=== PATIENT | female | born 1975 | race Caucasian/White ===

== ENCOUNTER 2017-09-02 15:13 | Emergency (ER) | payer SELFPAY ==
[2017-09-02 15:22] VITALS: RESP 16; TEMP 98.1
--- NOTE | 2017-09-02 15:48 | EDPHY ---
H & P Stated Complaint: fell from ladder > left elbow pain Source: Patient Exam Limitations: No limitations - Personal History LMP (Females 10-55): Hysterectomy Current Tetanus/Diphtheria Vaccine: Unsure Current Tetanus Diphtheria and Acellular Pertussis (TDAP): Unsure - Medical/Surgical History Hx Asthma: No Hx Chronic Respiratory Disease: No Hx Diabetes: No Hx Cardiac Disease: No Hx Renal Disease: No Hx Cirrhosis: No Hx Alcoholism: No Hx HIV/AIDS: No Hx Splenectomy or Spleen Trauma: No Other PMH: endometriosis, hysterectomy - Social History Smoking Status: Never smoked Time Seen by Provider: 09/02/17 15:48 HPI/ROS: HPI: This is a 41-year-old female who presents with Chief Complaint: Left elbow injury Location: Left elbow Quality: Injury Duration: 1030 Signs and Symptoms: No bleeding, no radiation, no numbness, no weakness, + tingling, no incontinence, + decreased range of motion, + moderate swelling, + moderate bruising Timing: Sudden Severity: 10 out 10 Context: Patient complains of left elbow pain, severe, nonradiating, after falling 5 rings off of a ladder accidentally secondary to losing her footing and landing directly on her left elbow on the ground around 1030 this morning. She has not eaten since last night. She is right-hand dominant. She reports immediate pain/bruising. She denies paresthesias/numbness. She does report decreased range of motion secondary to pain. She denies hitting her head or loss of consciousness. Denies head injury/LOC. Modifying Factors: None Comment: ROS: Constitutional: No fever, no chills, no weight loss Eyes: No blurred vision Respiratory: No shortness of breath, no cough Cardiovascular: No chest pain Gastrointestinal: No nausea, no vomiting no diarrhea Genitourinary: No dysuria Extremities: No myalgias Neurologic: No weakness, no numbness Skin: No rashes Hematologic: No bruising, no bleeding MEDICAL/SURGICAL/SOCIAL HISTORY: Medical history: Endometriosis Surgical history: Hysterectomy CONSTITUTIONAL: adult white female, chattering teeth and shaking, holding left arm and flexed 90 degree position, awake and alert, moderate distress HEENT: Atraumatic and normocephalic, PERRL, EOMI. no globe entrapment, no raccoon eyes, no Rondon signs. Tympanic membranes clear. No tympanic membrane rupture. Nares patent; no septal hematoma. Oropharynx clear, no exudate and moist pink mucosa. No malocclusion. no dental trauma. Airway patent. No lymphadenopathy. NECK: supple, no midline tenderness, flexion 45 degrees, extension 45 degrees, right and left lateral flexion 45 degrees. No meningismus. Cardiovascular: Normal S1/S2, regular rate, regular rhythm, without murmur rub or gallop. PULMONARY/CHEST: Symmetrical and nontender. no crepitus. Clear to auscultation bilaterally Good air movement. No accessory muscle usage. ABDOMEN: Soft, nondistended, nontender, no ecchymosis, no rebound, no guarding , no peritoneal signs, no masses or organomegaly. No CVAT. PELVIC: no pain with rocking; bilateral hips flexion 125 degrees, extension 30 degrees, with no pain internal rotation and no pain external rotation. BACK: No midline tenderness, no paraspinous spasm, deep tendon reflexes 2/2, no pain with straight leg raise EXTREMITIES: 2/2 radial pulses, left elbow shows a posterior/lateral swelling and ecchymosis; elbow is flexed at 45; will not allow me to extended secondary to pain. Able to wiggle all 5 fingers. Light touch sensation intact but decreased. Left wrist flexion to 70, extension to 70, radial and ulnar deviation to 20. Able to participate in left shoulder shrug. no deformities, no clubbing, no cyanosis or edema. NEUROLOGICAL: no focal neuro deficits. GCS 15. SKIN: Warm and dry, no erythema. no rash. Good capillary refill. (Jordyn Arteaga) Constitutional: Initial Vital Signs Temperature (C) 36.7 C 09/02/17 15:19 Heart Rate 59 L 09/02/17 15:19 Respiratory Rate 16 09/02/17 15:19 Blood Pressure 146/79 H 09/02/17 15:19 O2 Sat (%) 99 09/02/17 15:19 O2 Delivery Mode [Post Nasal Cannula Procedure 2nd] O2 Delivery Mode [Post Room Air Procedure 1st] O2 Delivery Mode [Procedural Non-Rebreather Mask 1st] O2 Delivery Mode [.Immediate Room Air Pre-Procedure] O2 Delivery Mode Room Air O2 (L/minute) [Post Procedure 2 2nd] O2 (L/minute) [Procedural 1st] 15 O2 (L/minute) 15 Allergies/Adverse Reactions: No Known Allergies Allergy (Unverified 09/02/17 15:18) Home Medications: Medication Instructions Recorded oxyCODONE/APAP /325 [Percocet 1 - 2 tab PO Q4H PRN #12 tab 09/02/17 5/325 (*)] Medical Decision Making - Diagnostics Imaging Results: Imaging Impressions Elbow X-Ray 09/02/17 17:50 Impression: Reduction of the left elbow dislocation. Subtle nondisplaced avulsion or chip fracture from the olecranon process and possible tiny fracture fragment anteriorly at the coronoid fossa. Procedures: Procedure: Procedural sedation. A pre-sedation evaluation was completed on the patient at bedside. Patient is an appropriate candidate for procedural sedation. The risks of the sedation were discussed with the patient. A time out was completed. The patient was sedated with Ketamine and Propofol. The patient was monitored with continuous pulse oximetry and monitoring and evaluation advisor. There were no complications and no significant hypoxemia. Dr. Matos and I remained at the bedside for the sedation. The total time I spent in the procedural sedation was 36 minutes. Procedure: Dislocation reduction. The left elbow was reduced in the usual fashion without complications. Post reduction the patient's neurovascular exam is normal. Post reduction x-ray demonstrates reduction of the joint to the anatomic position. The procedure was performed by Dr. Matos. Procedure: Splint placement. A left long-arm posterior splint and sling was applied by myself with the assistance of the emergency room copier repair technician. After application of the splint I returned and re-examined the patient. The splint was adequately immobilizing the joint and distal to the splint the patient's circulation and sensation was intact. (Jordyn Arteaga) ED Course/Re-evaluation: Left elbow x-ray, IV medications ordered Given IV Dilaudid x 3 and IV Zofran No LOC. 1640: Reviewed x-rays via PACs with Dr. Matos and shows significant dislocation laterally. ED decision to consult Orthopedics. Spoke with Shaniqua COFFMAN who advised will review images with orthopedic attending keyboard action assembler and call us back. Dr. Mojica consulted and spoke with Dr. Matos. It was decided that we will attempt to reduce left elbow dislocation and ER vs. OR. IV propofol and ketamine given Elbow reduction successful; C-arm at bedside used show successful reduction; small olecranon avulsion fracture noted; placed in posterior splint with sling; follow-up orthopedics No signs of neurovascular compromise/tenting of skin/compartment syndrome/ extremities and joints examined above and below area of concern and are neurovascularly intact. (Jordyn Arteaga) Differential Diagnosis: Differential diagnosis includes but is not limited to elbow dislocation, olecranon fracture, humerus fracture, radius fracture, ulnar fracture. (Jordyn Arteaga) Other Provider: I did see and evaluate this patient independently. I agree with the document above. I personally performed the procedure sedation and dislocation reduction. (Jordan Matos) - Data Points Medications Given: Discontinued Medications Hydromorphone HCl (Dilaudid) 1 mg IVP Q2HRS PRN PRN Reason: Pain, Severe Unable to Take PO Last Admin: 09/02/17 16:04 Dose: 1 mg Hydromorphone HCl (Dilaudid) 1 mg IVP EDNOW ONE Stop: 09/02/17 16:47 Last Admin: 09/02/17 16:50 Dose: 1 mg Sodium Chloride (Ns) 1,000 mls @ 0 mls/hr IV ONCE ONE; Wide Open PRN Reason: Protocol Stop: 09/02/17 17:04 Last Admin: 09/02/17 18:42 Dose: 1,000 mls Ketamine HCl (Ketamine) 40 mg IVP EDNOW ONE Stop: 09/02/17 17:04 Last Admin: 09/02/17 17:42 Dose: 60 mg Ondansetron HCl (Zofran) 4 mg IVP Q15M PRN PRN Reason: Nausea/Vomiting, Can't Take PO Last Admin: 09/02/17 16:04 Dose: 4 mg Oxycodone/Acetaminophen (Percocet 5/325mg Prepack#4) 1 btl TAKEHOME EDNOW ONE Stop: 09/02/17 17:58 Last Admin: 09/02/17 18:43 Dose: 1 btl Propofol (Diprivan) 40 mg IVP EDNOW ONE Stop: 09/02/17 17:04 Last Admin: 09/02/17 17:43 Dose: 40 mg Departure - Departure Disposition: Home, Routine, Self-Care Clinical Impression: Dislocation of left elbow Qualifiers: Encounter type: initial encounter Qualified Code(s): S53.105A - Unspecified dislocation of left ulnohumeral joint, initial encounter Condition: Good Instructions: Oxycodone/Acetaminophen (By mouth), Elbow Dislocation (ED) Additional Instructions: Keep the splint in place/dry and wear sling until seen by Orthopedics. Take ibuprofen 600-800 mg every 6-8 hours with food as needed for pain and inflammation. You may use Percocet as needed for severe breakthrough pain. Follow up with Orthopedics in 5-7 days at which time they will re-evaluate your elbow. If at any time you extremity becomes cool to touch, you have loss of sensation, or pain that is out of proportion and not relieved by medications; return to the emergency room immediately. Referrals: Simone Mojica MD [Medical Doctor] - 5-7 days, call for appt. Prescriptions: oxyCODONE/APAP 5/325 [Percocet 5/325 (*)] 1 - 2 tab PO Q4H PRN #12 tab PRN Reason: Pain, Severe
[2017-09-02] MEDS ORDERED: ONDANSETRON 4 MG/2 ML VIAL IVP PRN (15:52)
[2017-09-02] MEDS ORDERED: HYDROmorphONE/DILAUDID 1 MG/ML INJ IVP PRN (15:52)
[2017-09-02] MEDS ORDERED: HYDROmorphONE/DILAUDID 1 MG/ML INJ IVP ONE (16:46)
[2017-09-02] MEDS ORDERED: KETAMINE 100 MG/10 ML SYR IVP ONE (17:03)
[2017-09-02] MEDS ORDERED: PROPOFOL 200 MG/20 ML VIAL IVP ONE (17:03)
[2017-09-02] MEDS ORDERED: NS 1,000 ML IV ONE (17:03)
[2017-09-02] MEDS ORDERED: OXYCODONE/APAP 5/325MG PREPACK#4 BTL TAKEHOME ONE (17:57)
[2017-09-02 18:45] VITALS: O2SAT 93
[2017-09-02 18:46] VITALS: BP 140/92; PULSE 80
== END 2017-09-02 18:48 | disposition home or self-care (01) ==
PROC: 0RSMXZZ Reposition Left Elbow Joint, External Approach (ICD-10-PCS; principal; 2017-09-02)
DX: S53.105A Unspecified dislocation of left ulnohumeral joint, initial encounter (principal); W11.XXXA Fall on and from ladder, initial encounter; Y99.8 Other external cause status
CPT/HCPCS: 96374; J1170; J2405; J2704